=== PATIENT | female | born 1950 | race Caucasian/White ===

== ENCOUNTER 2017-05-17 08:05 | Emergency (ER) | payer OTHER ==
[2017-05-17 08:11] VITALS: BMI 24.6
--- NOTE | 2017-05-17 08:19 | DR.GENAD ---
HPI - PCP Primary Care Physician: LELAND ALEMAN - Complaint/Symptoms Chief Complaint Doctors Comments: Patient admits to epigastric pain for three days that has gotten worse. The pain is beneath the breath transverse but pain anywhere she is touched on the chest wall. She denies a history of cardiac disease but astmits to asthma. She smokes 3-4 cigarettes a day. Chief Complaint:: "HURTING IN CHEST FOR THREE OR FOUR DAYS NOW SHARP PAIN BURNING AND HURTING IN EARS AND THROAT - Source History Provided: Patient - Mode of Arrival Mode of Arrival: Ambulatory - Timing Onset of Chief Complaint: 05/15/17 PMH - PMH Past Medical History: Yes Past Medical History: Anxiety, Arthritis, Asthma, COPD, Depression, Diabetes, Migraines, Hypertension, Sleep Apnea Past Surgical History: Yes Surgical History: Cholecystectomy, [employer] Surgery, Hysterectomy - Family History History of Family Medical Conditions: Yes Family Medical History: Diabetes Mellitus, Cancer, Heart Failure, Hypertension - Social History Does patient currently use any type of tobacco product: Yes Have you used tobacco products in the last 12 months: Yes Type of Tobacco Use: Cigarettes How many years tobacco product used: 35 Does any household member use tobacco: Yes Alcohol Use: None Do you use any recreational Drugs:: No Lives With: Family Lives Where: Home - infectious screening In the last 2 months have you had wt loss of >10#?: NO Have you had fever, night sweats or hemotysis?: No Have you traveled outside the country in the last 6 months?: No Isolation: Standard ROS - Review of Systems Eyes: No Symptoms Reported ENTM: No Symptoms Reported Respiratoy: No Symptoms Reported Cardiovascular: See HPI Gastrointestinal/Abdominal: No Symptoms Reported Genitourinary: No Symptoms Reported Neurological: No Symptoms Reported Musculoskeletal: No Symptoms Reported Integumentary: No Symptoms Reported Hematologic/Lymphatic: No Symptoms Reported Endocrine: No Symptoms Reported, Intolerance to Cold PE - Vital Signs Vitals: Pulse Rate 85 Respiratory Rate 18 Blood Pressure [Left Arm] 147/92 Blood Pressure 111/68 O2 Sat by Pulse Oximetry 100 - General Limitations: No Limitations General Appearance: Alert, In No Apparent Distress - Head Head Exam: Normal Inspection, Atraumatic - Eyes Eye exam: Normal Appearance, PERRL, EOMI - ENT ENT Exam: Normal Exam External Ear Exam: Normal External Inspection TM/Canal Exam: Bilateral Normal Nose Exam: Normal Nose Exam Mouth Exam: Normal Inspection Throat Exam: Normal Inspection - Neck Neck Exam: Normal Inspection, Full ROM - Chest Chest Inspection: Normal Inspection, Tenderness (generalized) - Respiratory Respiratory Exam: Normal Lung Sounds Bilat Respiratory Exam: Bilateral Clear to Auscultation - Cardiovascular Cardiovascular Exam: Regular Rate, Normal Rhythm - Abdominal Exam Abdominal Exam: Normal Inspection Abdominal Tenderness: negative: RUQ, RLQ, LUQ, LLQ, Epigastrium, Suprapubic, Diffuse, Mild, Moderate, Severe, Other - Extremities Extremities Exam: Normal Inspection - Back Back Exam: Normal Inspection - Neurologic Neurological Exam: Alert, Oriented X3, CN II-XII Intact - Psychiatric Psychiatric Exam: Normal Affect, Normal Mood - Skin Skin Exam: Warm, Dry, Intact ROR - Labs Reviewed Result Diagrams: 05/17/17 08:30 05/17/17 08:30 Laboratory: WBC 10.5 X10^3/uL (3.6-10.0) H 05/17/17 08:30 RBC 4.88 X10^6/uL (3.5-5.4) 05/17/17 08:30 Hgb 14.1 g/dL (12.0-16.0) 05/17/17 08:30 Hct 41.4 % (36.0-47.0) 05/17/17 08:30 MCV 84.7 fL (80.0-100.0) 05/17/17 08:30 MCH 28.9 pg (27.0-34.0) 05/17/17 08:30 MCHC 34.1 g/dL (33.0-35.0) 05/17/17 08:30 RDW 14.6 % (11.6-16.5) 05/17/17 08:30 Plt Count 317 X10^3/uL (150.0-450.0) 05/17/17 08:30 MPV 7.8 fL (7.4-11.0) 05/17/17 08:30 Neut % 73.8 % (42.0-75.0) 05/17/17 08:30 Lymph % 17.3 % (21.0-51.0) L 05/17/17 08:30 Pope % 6.6 % (0.0-13.0) 05/17/17 08:30 Eos % 1.7 % (0.9-2.9) 05/17/17 08:30 Baso % 0.6 % (0.2-1.0) 05/17/17 08:30 Neut # 7.7 x10^3/uL (2.2-4.8) H 05/17/17 08:30 Lymph # 1.8 X10^3/uL (1.3-2.9) 05/17/17 08:30 Pope # 0.7 x10^3/uL (0.3-0.8) 05/17/17 08:30 Eos # 0.2 x10^3/uL (0.0-0.2) 05/17/17 08:30 Baso # 0.1 X10^3/uL (0.0-0.1) 05/17/17 08:30 Absolute Nucleated RBC 0.0 /100WBC 05/17/17 08:30 INR Target Range - 05/17/17 08:30 INR 0.89 (0.8-1.3) 05/17/17 08:30 Sodium 135 mmol/L (136-145) L 05/17/17 08:30 Corrected Sodium TNP 05/17/17 08:30 Potassium 5.4 mmol/L (3.5-5.1) H 05/17/17 08:30 Chloride 100 mmol/L (98-107) 05/17/17 08:30 Carbon Dioxide 24.3 mmol/L (21-32) 05/17/17 08:30 BUN 27 mg/dL (7-18) H 05/17/17 08:30 Creatinine 1.90 mg/dL (0.55-1.02) H 05/17/17 08:30 Est GFR (MDRD) Af Amer 34 (>60) L 05/17/17 08:30 Est GFR (MDRD) Non-Af 28 (>60) L 05/17/17 08:30 Glucose 108 mg/dL (65-99) H 05/17/17 08:30 Calcium 10.2 mg/dL (8.5-10.1) H 05/17/17 08:30 Corrected Calcium TNP 05/17/17 08:30 Total Bilirubin 0.30 mg/dL (0.2-1.0) 05/17/17 08:30 AST 29 Units/L (15-37) 05/17/17 08:30 ALT 26 Units/L (12-78) 05/17/17 08:30 Alkaline Phosphatase 104 Units/L (46-116) 05/17/17 08:30 Creatine Kinase 66 Units/L (26-192) 05/17/17 08:30 CK-MB (CK-2) < 1.0 ng/mL (0-4.0) 05/17/17 08:30 CK/CKMB % Calc 1.5 % (<4) 05/17/17 08:30 Troponin I < 0.02 ng/mL (0-1.5) 05/17/17 08:30 Total Protein 7.7 g/dL (6.4-8.2) 05/17/17 08:30 Albumin 3.4 g/dL (3.4-5.0) 05/17/17 08:30 Globulin 4.3 g/dL (2.5-4.5) 05/17/17 08:30 Albumin/Globulin Ratio 0.8 Ratio (1.1-2.1) L 05/17/17 08:30 H. pylori IgG Antibody Positive (NEGATIVE) A 05/17/17 08:30 - Diagnosis Discharge Problem: Chronic epigastric pain, Helicobacter pylori (H. pylori) infection - Discharge Plan Condition: Stable - Follow ups/Referrals Follow ups/Referrals: [facility],None [STAFF PHYSICIAN] - 3 days - Instructions
[2017-05-17 08:39] LABS: BASOPHILS # (AUTO) 0.1 X10^3/uL (0.0-0.1); BASOPHILS % (AUTO) 0.6 % (0.2-1.0); EOSINOPHILS # (AUTO) 0.2 x10^3/uL (0.0-0.2); EOSINOPHILS % (AUTO) 1.7 % (0.9-2.9); HEMATOCRIT 41.4 % (36.0-47.0); HEMOGLOBIN 14.1 g/dL (12.0-16.0); LYMPHOCYTES # (AUTO) 1.8 X10^3/uL (1.3-2.9); LYMPHOCYTES % (AUTO) 17.3 % (21.0-51.0); MEAN CORPUSCULAR HEMOGLOBIN 28.9 pg (27.0-34.0); MEAN CORPUSCULAR HGB CONC 34.1 g/dL (33.0-35.0); MEAN CORPUSCULAR VOLUME 84.7 fL (80.0-100.0); MEAN PLATELET VOLUME 7.8 fL (7.4-11.0); MONOCYTES # (AUTO) 0.7 x10^3/uL (0.3-0.8); MONOCYTES % (AUTO) 6.6 % (0.0-13.0); NEUTROPHILS # (AUTO) 7.7 x10^3/uL (2.2-4.8); NEUTROPHILS % (AUTO) 73.8 % (42.0-75.0); PLATELET COUNT 317 X10^3/uL (150.0-450.0); RED BLOOD COUNT 4.88 X10^6/uL (3.5-5.4); RED CELL DISTRIBUTION WIDTH 14.6 % (11.6-16.5); WHITE BLOOD COUNT 10.5 X10^3/uL (3.6-10.0)
[2017-05-17] MEDS ORDERED: TORADOL 30 MG VIAL IVP ONE (08:53)
[2017-05-17] MEDS ORDERED: TORADOL 30 MG VIAL ONE (08:54)
--- NOTE | 2017-05-17 08:54 | RAD ---
HISTORY: Chest pain Study: Single-view of the chest Comparison: None Findings: The trachea is midline. The cardiac silhouette is at the upper limits of normal. The lungs are well expanded without focal infiltrate or effusion. The aortic knob is partially calcified. A right-si ded central venous catheter is noted with the tip projecting over the SVC. Surgical clips project ove r the right upper quadrant the abdomen. Numerous overlying leads are noted. IMPRESSION: 1. No acute cardiopulmonary disease. Reported By:
[2017-05-17 09:03] LABS: BLOOD UREA NITROGEN 27 mg/dL (7-18); CALCIUM 10.2 mg/dL (8.5-10.1); CARBON DIOXIDE 24.3 mmol/L (21-32); CHLORIDE 100 mmol/L (98-107); SODIUM 135 mmol/L (136-145); TROPONIN I < 0.02 ng/mL (0-1.5); eGFR BLACK RACES 34 (>60); eGFR NON BLACK RACES 28 (>60)
[2017-05-17 09:07] LABS: ALANINE AMINOTRANSFERASE 26 Units/L (12-78); ALBUMIN 3.4 g/dL (3.4-5.0); ALKALINE PHOSPHATASE 104 Units/L (46-116); ASPARTATE AMINO TRANSFERASE 29 Units/L (15-37); CKMB % 1.5 % (<4); CREATINE KINASE 66 Units/L (26-192); CREATINE KINASE MB < 1.0 ng/mL (0-4.0); TOTAL PROTEIN 7.7 g/dL (6.4-8.2)
[2017-05-17 09:43] VITALS: BP 100/58
== END 2017-05-17 09:43 | disposition home or self-care (01) ==
LOC: ER 08:27
DX: R10.13 Epigastric pain (principal); B96.81 Helicobacter pylori [H. pylori] as the cause of diseases classified elsewhere
CPT/HCPCS: 36415; 71010; 80053; 82550; 82553; 84484; 85025; 85610; 86677; 93005; 93010; 96365; 96374; 96375; 99283; A4222; J1885